=== PATIENT | female | born 1955 ===

== ENCOUNTER 2017-10-03 06:43 | Day surgery (SDC) | payer BC ==
[2017-09-25 11:06] VITALS: BMI 26.2
[2017-10-03] MEDS ORDERED: Simethicone 40 mg/0.6 ml Liquid (30 ml) ONE (07:48)
[2017-10-03] MEDS ORDERED: Propofol 10 mg/ml Inj (20 ML) ONE (08:04)
[2017-10-03] MEDS ORDERED: Sodium Chloride 0.9% 1,000 ML IV SCH (08:45)
[2017-10-03 09:25] VITALS: BP 129/59; PULSE 86; RESP 18; TEMP 97.8; O2SAT 100
== END 2017-10-03 10:00 | disposition home or self-care (01) ==
LOC: ENDO 06:43
PROVIDERS: ATTEND Specialist
DX: Z12.11 Encounter for screening for malignant neoplasm of colon (principal); K57.30 Diverticulosis of large intestine without perforation or abscess without bleeding; K64.8 Other hemorrhoids; Z87.19 Personal history of other diseases of the digestive system